=== PATIENT | female | born 1960 | race Caucasian/White ===

== ENCOUNTER → 2024-09-08 14:52 | Outpatient (REF) | payer OTHER, SELFPAY | LOC: DHSLP 14:52 | PROVIDERS: ATTENDING PHYSICIAN Internal Medicine | DX: G47.30 Sleep apnea, unspecified (principal); R06.83 Snoring | CPT/HCPCS: 95800 ==

== ENCOUNTER 2025-01-11 06:27 | Day surgery (SDC) | payer BC, SELFPAY | END 2025-01-11 10:06 | disposition home or self-care (01) | LOC: GI 06:27 | PROVIDERS: ATTENDING PHYSICIAN Internal Medicine | DX: Z12.11 Encounter for screening for malignant neoplasm of colon (principal); Z86.0100 Personal history of colon polyps, unspecified; D12.3 Benign neoplasm of transverse colon; K63.5 Polyp of colon | CPT/HCPCS: 45385; 45380; 88305 ==